=== PATIENT | female | born 1990 | race Hispanic/Latino ===

== ENCOUNTER 2016-05-20 08:32 | Emergency (ER) | payer OTHER ==
[2016-05-20 08:40] VITALS: BP 112/79; PULSE 104; RESP 18; TEMP 97.6; O2SAT 100
[2016-05-20 08:41] VITALS: BMI 30.4
[2016-05-20] MEDS ORDERED: Sodium Chloride 0.9% 1,000 ML IV STA (09:06)
--- NOTE | 2016-05-20 09:44 | RAD ---
PROCEDURE: Left Foot Radiographs. HISTORY: L foot pain s/p trauma COMPARISON: None. FINDINGS: BONES: There appears to be a horizontal lucency through the proximal 5th metatarsal on multiple images. This would suggest a small nondisplaced fracture. No other fractures are identified. No lytic process is seen. No periosteal reaction is noted. No erosions are seen. JOINTS: There is no abnormal widening of the proximal 1st and 2nd tarsal metatarsal joint. Subtalar joint is unremarkable. SOFT TISSUES: Mild soft tissue swelling noted laterally in the proximal foot region. OTHER FINDINGS: None. IMPRESSION: Small nondisplaced fracture of the proximal left 5th metatarsal
[2016-05-20 10:01] LABS: MEAN PLATELET VOLUME 10.9 fl (7.2-11.7); MONO # 0.4 K/uL (0.0-0.8)
[2016-05-20 10:06] LABS: BASO % 0.2 % (0.0-2.0); EOS % 0.3 % (0.0-4.0); HEMATOCRIT 39.4 % (34.0-47.0); LYMPH % 17.3 % (20.0-40.0); MEAN CELL VOLUME 84.4 fl (81.0-99.0); MEAN CORPUSCULAR HGB CONC 34.4 g/dL (33.0-37.0); MONO % 6.3 % (0.0-10.0); NEUT # 4.4 K/uL (1.8-7.0); NEUT % 75.9 % (50.0-75.0); NRBC % 0.1 % (0.0-0.0); RED CELL DISTRIBUTION WIDTH 12.3 % (11.5-14.5); WHITE BLOOD COUNT 5.8 K/uL (4.8-10.8)
[2016-05-20 10:19] LABS: ALB/GLOB RATIO 1.3 (1.0-2.1); ALKALINE PHOSPHATASE 58 U/L (38-126); ALT/SGPT 32 U/L (9-52); AST/SGOT 21 U/L (14-36); BILIRUBIN,TOTAL 0.3 mg/dl (0.2-1.3); BLOOD UREA NITROGEN 12 mg/dl (7-17); CALCIUM 9.2 mg/dL (8.4-10.2); CARBON DIOXIDE 20 mmol/L (22-30); CHLORIDE 106 mmol/L (98-107); GFR AFRICAN-AMERICAN > 60; GLUCOSE,RANDOM 112 mg/dL (65-105); LIPASE 92 U/L (23-300); POTASSIUM 4.2 MMOL/L (3.6-5.0); SODIUM 135 mmol/l (132-148); TOTAL PROTEIN 8.3 G/DL (6.3-8.2)
--- NOTE | 2016-05-20 10:31 | ED PDOC ---
HPI: General Adult Time Seen by Provider: 05/20/16 08:48 Chief Complaint (Nursing): Abdominal Pain Chief Complaint (Provider): Abdominal Pain History Per: Patient History/Exam Limitations: no limitations Onset/Duration Of Symptoms: Hrs Current Symptoms Are (Timing): Still Present Additional Complaint(s): 25 y/o female who presents to the emergency department with a complaint of a right upper quadrant abdominal pain, nausea and multiplae vomiting episodes since this morning. Along with left foot pain after twisting it last night. Denies anhy previous pregnancies or ingesting any medications for the relief of pain. Of note, patient is visiting from [place] and states she was recently diagnosed with gallstones. Believes diet this weekend may have worsened the pain. Has a surgical consult 05/21/2016 in [place]. Past Medical History Reviewed: Historical Data, Nursing Documentation, Vital Signs Vital Signs: Last Vital Signs Temp 97.6 F 05/20/16 08:39 Pulse 104 H 05/20/16 08:39 Resp 18 05/20/16 08:39 BP 112/79 05/20/16 08:39 Pulse Ox 100 05/20/16 12:30 - Medical History PMH: No Chronic Diseases - Surgical History Surgical History: No Surg Hx - Family History Family History: States: Unknown Family Hx - Social History Current smoker - smoking cessation education provided: No Alcohol: None Drugs: Denies - Home Medications Home Medications: Ambulatory Orders Medication Instructions Recorded Naproxen [Naprosyn] 500 mg PO BID PRN #14 tablet 05/20/16 Ondansetron [Zofran] 4 mg PO Q6H PRN #10 tab 05/20/16 oxyCODONE/Acetaminophen [Percocet 1 ea PO Q4 PRN #5 tab 05/20/16 5/325 mg Tab] - Allergies Allergies/Adverse Reactions: Allergies Allergy/AdvReac Type Severity Reaction Status Date / Time No Known Allergies Allergy Verified 05/20/16 08:39 Review of Systems ROS Statement: Except As Marked, All Systems Reviewed And Found Negative Gastrointestinal: Positive for: Nausea, Vomiting (Several episodes), Abdominal Pain (RUQ) Musculoskeletal: Positive for: Foot Pain (Left) Physical Exam - Reviewed Nursing Documentation Reviewed: Yes Vital Signs Reviewed: Yes - Physical Exam Appears: Positive for: Non-toxic, No Acute Distress Head Exam: Positive for: ATRAUMATIC, NORMOCEPHALIC Skin: Positive for: Normal Color, Warm, Dry Eye Exam: Positive for: Normal appearance. Negative for: Conjunctival injection Cardiovascular/Chest: Positive for: Regular Rate, Rhythm. Negative for: Murmur Respiratory: Positive for: Normal Breath Sounds. Negative for: Accessory Muscle Use, Respiratory Distress Gastrointestinal/Abdominal: Positive for: Tenderness (Mild RUQ). Negative for: Soft Extremity: Positive for: Tenderness (left foot lateral ecchymosis with tenderness around the 5th metatarsal ) Neurologic/Psych: Positive for: Alert, Oriented - Laboratory Results Result Diagrams: 05/20/16 09:50 05/20/16 09:50 - ECG O2 Sat by Pulse Oximetry: 100 (RA) Pulse Ox Interpretation: Normal Medical Decision Making Medical Decision Making: Time: 8:48 Initial impression: Foot fracture and biliary colic Initial plan: --Orders: --COMP Metabolic Panel --Lipase Stat --ED Urine (POC) --ED Urine Dipstick (POC) --Sodium Chloride 1,000 ml IV 1,000 mls/hr --Toradol 30 mg IV --Zofran INJ 4 mg IV --Abdomen Limited US --Revaluation Time: 9:42 --Foot X-ray FINDINGS: BONES: There appears to be a horizontal lucency through the proximal 5th metatarsal on multiple images. This would suggest a small nondisplaced fracture. No other fractures are identified. No lytic process is seen. No periosteal reaction is noted. No erosions are seen. JOINTS: There is no abnormal widening of the proximal 1st and 2nd tarsal metatarsal joint. Subtalar joint is unremarkable. SOFT TISSUES: Mild soft tissue swelling noted laterally in the proximal foot region. OTHER FINDINGS: None. IMPRESSION: Small nondisplaced fracture of the proximal left 5th metatarsal --Pending Podiatry on-call for the consult of the x-ray which demonstrated a small non displaced fracture 5th metatarsal Time: 12:24 --Abdomen US FINDINGS: LIVER: Measures 17 cm in length. Grossly normal echogenicity of the liver parenchyma. No mass. No intrahepatic bile duct dilatation. GALLBLADDER: There is evidence of a small mobile gallstone within the gallbladder. No gallbladder wall thickening and/or pericholecystic fluid was seen. Gallbladder wall measures 2 millimeters. Minor amount of gallbladder sludge is also noted. COMMON BILE DUCT: Measures 2.5 mm. No stones. No dilatation. PANCREAS: Unremarkable as visualized. No mass. No ductal dilatation. RIGHT KIDNEY: Measures 10.9 cm in length. Normal echogenicity. No calculus, mass, or hydronephrosis. AORTA: No aneurysmal dilatation. IVC: Unremarkable. OTHER FINDINGS: No ascites is seen. IMPRESSION: Single small gallstone. No ultrasound evidence of acute cholecystitis. podiatry consulted and placed posterior split. Crutch training offered. Intact neurovascular status thereafter. DC from ED, followup w specialists in [place]. Rx analgesia and given instructions and copy of XRays and US report for followup. Scribe Attestation: Documented by Tami Montano, acting as a scribe for Jose Juan Flores MD. Provider Scribe Attestation: All medical record entries made by the Scribe were at my direction and personally dictated by me. I have reviewed the chart and agree that the record accurately reflects my personal performance of the history, physical exam, medical decision making, and the department course for this patient. I have also personally directed, reviewed, and agree with the discharge instructions and disposition. Disposition - Clinical Impression Clinical Impression: Fracture of 5th metatarsal, Biliary colic - Patient ED Disposition Is Patient to be Admitted: No Counseled Patient/Family Regarding: Studies Performed, Diagnosis, Need For Followup, Rx Given - Disposition Referrals: FAMILY PROVIDER,NO [Primary Care Provider] - Disposition: Routine/Home Disposition Time: 11:45 Condition: STABLE Additional Instructions: See your specialist in [place] for your gallbladder, and see orthopedics or high school art teacher for your foot fracture. This fracture can result in complications if not followed to complete resolution or if you walk on the injury. Take medication as directed for pain. Prescriptions: Naproxen [Naprosyn] 500 mg PO BID PRN #14 tablet PRN Reason: Pain, Moderate (4-7) oxyCODONE/Acetaminophen [Percocet 5/325 mg Tab] 1 ea PO Q4 PRN #5 tab PRN Reason: Pain, Severe (8-10) Ondansetron [Zofran] 4 mg PO Q6H PRN #10 tab PRN Reason: Nausea/Vomiting Instructions: Biliary Colic (ED), Gallstones (ED), Foot Fracture in Adults (ED)
--- NOTE | 2016-05-20 10:41 | CP.PCM.CON ---
History of Present Illness - History of Present Illness History of Present Illness: 25 year old female presents to [facility] ED for left foot pain and bruising following acute stress dorsiflexion injury suffered yesterday evening. Pt reports she noted the bruising and pain this morning, causing her to seek medical attention as she is being evaluated for potential pancreatitis. Pt graded pedal pain as a 3/4 while weightbearing. Pt denies any other pedal complaints. Pt reports overnight right upper quadrant abdominal pain w/ accompanying nausea and multiple vomiting episodes. Pt denies recent f/c/cp/ sob. Past Patient History - Past Social History Smoking Status: Never Smoked - PSYCHIATRIC Hx Substance Use: No - ANESTHESIA Hx Anesthesia: No Meds Home Medications: Home Medication List Medication Instructions Recorded Confirmed Type Naproxen [Naprosyn] 500 mg PO BID PRN #14 tablet 05/20/16 Rx Ondansetron [Zofran] 4 mg PO Q6H PRN #10 tab 05/20/16 Rx oxyCODONE/Acetaminophen [Percocet 1 ea PO Q4 PRN #5 tab 05/20/16 Rx 5/325 mg Tab] Allergies/Adverse Reactions: Allergies Allergy/AdvReac Type Severity Reaction Status Date / Time No Known Allergies Allergy Verified 05/20/16 08:39 Physical Exam - Constitutional Appears: Well, Non-toxic, No Acute Distress - Extremities Exam Additional comments: Left lower extremity focused. VASC: DP and PT pulses are weakly palpable, graded 2/4. Localized lateral foot non-pitting edema. No Callor. Temperature runs WNL proximal to distal. DERM: Localized patch of moderate uniform ecchymosis to lateral-dorsal aspect of foot. No open wound, lesion, vesicles, or interdigital macerations noted. NEURO: Protective sensation grossly intact. ORTHO: Pain localized to 5th metatarsal base. Pain on Stress eversion of mid- foot. No tenderness along course of peroneus brevis or longus.Pedal muscle strength is graded 5/5 in 4 major pedal muscle groups. - Neurological Exam Neurological exam: Alert, Oriented x3 - Psychiatric Exam Psychiatric exam: Normal Affect, Normal Mood Results - Vital Signs Recent Vital Signs: Last Vital Signs Temp 97.6 F 05/20/16 08:39 Pulse 104 H 05/20/16 08:39 Resp 18 05/20/16 08:39 BP 112/79 05/20/16 08:39 Pulse Ox 100 05/20/16 10:31 - Labs Result Diagrams: 05/20/16 09:50 05/20/16 09:50 Labs: Laboratory Results - last 24 hr 05/20/16 09:50 WBC 5.8 RBC 4.66 Hgb 13.5 Hct 39.4 MCV 84.4 MCH 29.0 MCHC 34.4 RDW 12.3 Plt Count 211 MPV 10.9 Neut % (Auto) 75.9 H Lymph % (Auto) 17.3 L [place] % (Auto) 6.3 Eos % (Auto) 0.3 Baso % (Auto) 0.2 Neut # 4.4 Lymph # 1.0 [place] # 0.4 Eos # 0.0 Baso # 0.0 Sodium 135 Potassium 4.2 Chloride 106 Carbon Dioxide 20 L Anion Gap 13 BUN 12 Creatinine 0.6 L Est GFR ( Amer) > 60 Est GFR (Non-Af Amer) > 60 Random Glucose 112 H Calcium 9.2 Total Bilirubin 0.3 AST 21 ALT 32 Alkaline Phosphatase 58 Total Protein 8.3 H Albumin 4.6 Globulin 3.7 Albumin/Globulin Ratio 1.3 Lipase 92 Assessment & Plan - Assessment and Plan (Free Text) Assessment: 25 y/o female with Left foot 5th metatarsal base fracture; closed, extra- articular, non-displaced. Plan: Patient evaluated and treated. Chart, labs, and vitals reviewed. Discussed w/ attending Dr. Bedolla. X-rays reviewed, 5th metatarsal base fracture appraised. -Applied Montejo compression & Posterior splint. -Pt to be non-weightbearing to the Left foot w/ aid of axillary crutches, for a period of 2-3 weeks. -NSAIDS per ED. Discussed w/ patient etiology of injury, discussed conservative management and potential need for surgical intervention should complications arise. All uziel 's questions and concerns were addressed to her satisfaction. Pt to followup with local [facility] specialist upon return home. - Date & Time Date: 05/20/16 Time: 10:50
--- NOTE | 2016-05-20 12:26 | US ---
HISTORY: RUQ pain hx gallstones COMPARISON: None. TECHNIQUE: Sonographic evaluation of the right upper quadrant of the abdomen. FINDINGS: LIVER: Measures 17 cm in length. Grossly normal echogenicity of the liver parenchyma. No mass. No intrahepatic bile duct dilatation. GALLBLADDER: There is evidence of a small mobile gallstone within the gallbladder. No gallbladder wall thickening and/or pericholecystic fluid was seen. Gallbladder wall measures 2 millimeters. Minor amount of gallbladder sludge is also noted. COMMON BILE DUCT: Measures 2.5 mm. No stones. No dilatation. PANCREAS: Unremarkable as visualized. No mass. No ductal dilatation. RIGHT KIDNEY: Measures 10.9 cm in length. Normal echogenicity. No calculus, mass, or hydronephrosis. AORTA: No aneurysmal dilatation. IVC: Unremarkable. OTHER FINDINGS: No ascites is seen. IMPRESSION: Single small gallstone. No ultrasound evidence of acute cholecystitis.
== END 2016-05-20 13:15 | disposition home or self-care (01) ==
LOC: H.ER 08:32
DX: S92.355A Nondisplaced fracture of fifth metatarsal bone, left foot, initial encounter for closed fracture (principal); S99.1 Physeal fracture of metatarsal; X50.1XXA Overexertion from prolonged static or awkward postures, initial encounter; Y93.9 Activity, unspecified; K80.50 Calculus of bile duct without cholangitis or cholecystitis without obstruction